=== PATIENT | female | born 1945 | race Caucasian/White ===

== ENCOUNTER 2020-10-04 22:02 | Emergency (ER) | payer MEDICARE ==
[~2020-10-04] VITALS: Ht 165.1 cm; Wt 72.3 kg
[~2020-10-04 22:02] MED LIST: ATOR40TA PO; ESTR1TAB23 PO; TEMA30CA5 PO
[2020-10-04 22:11] VITALS: BP 160/82
== END 2020-10-04 22:20 | disposition home or self-care (01) ==
LOC: ER 22:03
DX: J02.9 Acute pharyngitis, unspecified (principal); Z20.828 Contact with and (suspected) exposure to other viral communicable diseases; Z88.5 Allergy status to narcotic agent; Z79.899 Other long term (current) drug therapy
CPT/HCPCS: 36415; 87635; 99283

== ENCOUNTER 2022-07-09 05:48 | Inpatient (IN) | payer MEDICARE ==
[2022-07-03 12:15] LABS: BASOPHILS # (AUTO) 0.1 X10'3 (0-0.2); BASOPHILS % (AUTO) 0.7 % (0-1); EOSINOPHILS % (AUTO) 0.5 % (0-6); LYMPHOCYTES # (AUTO) 1.3 X10'3 (1.1-4.8); MEAN CORPUSCULAR HEMOGLOBIN 30.3 PG (27.0-31.0); MEAN CORPUSCULAR HGB CONC 33.4 g/dL (33.0-36.5); MEAN CORPUSCULAR VOLUME 90.7 FL (78-98); MEAN PLATELET VOLUME 8.5 FL (7.4-10.4); MONOCYTES # (AUTO) 0.6 X10'3 (0-0.9); MONOCYTES % (AUTO) 6.6 % (2-12); NEUTROPHILS # (AUTO) 6.8 X10'3 (1.8-7.7); NEUTROPHILS % (AUTO) 77.2 % (42-75); PRE OP PLATELET COUNT 313 X10'3 (140-440); RED BLOOD COUNT 4.63 X10'6 (4.20-5.60); RED CELL DISTRIBUTION WIDTH 14.4 % (11.5-14.5)
[2022-07-03 12:29] LABS: ALBUMIN 4.4 G/DL (3.4-5.0); ALBUMIN/GLOBULIN RATIO 1.3 (1.1-1.5); ALKALINE PHOSPHATASE 88 IU/L (46-116); BLOOD UREA NITROGEN 15 MG/DL (7-18); BUN/CREATININE RATIO 16.9 (6.6-38.0); CALCIUM 9.4 MG/DL (8.5-10.1); CHLORIDE 105 MMOL/L (99-107); CREATININE 0.89 MG/DL (0.40-0.90); PRE OP ALT 32 U/L (30-65); PRE OP ANION GAP 9 (8-16); PRE OP AST 20 U/L (10-37); PRE OP BILIRUB, TOTAL 0.7 MG/DL (0.0-1.0); PRE OP GLUCOSE 94 MG/DL (70-104); PRE OP POTASSIUM 4.1 MMOL/L (3.4-5.1); PRE OP SODIUM 142 MMOL/L (135-145); TOTAL CARBON DIOXIDE 28.3 MMOL/L (24-32); TOTAL PROTEIN 7.8 G/DL (6.4-8.2); eGFR 62 ML/MIN
[2022-07-09] VITALS (19 sets, daily range): BP systolic 131–157; BP diastolic 64–93
[~2022-07-09] VITALS: Ht 165.1 cm; Wt 72.9 kg
[~2022-07-09 05:48] MED LIST changes: +DICL50TA14 PO; -ESTR1TAB23 PO; +LIFI1DRO OP; +LOSA50TA3 PO; +LOSA50TA64 PO; +ceFAZolin inj. 2,000 MG in dextrose 5%-water 100 ML IV ONE; +famotidine 20mg tablet PO ONE; +ringers solution, lacted 1,000 ML IV SCH; +tranexamic acid 650mg tablet PO ONE; +vancomycin/NS 1 GM in NS 250 ML IV ONE
[2022-07-09] MEDS ORDERED: ROPIVAcaine 0.5% (5mg/ml) 30ml vial ONE ×2 (08:50→10:13)
[2022-07-09] MEDS ORDERED: fentaNYL/PF 50MCG/1 ML 2ML syringe ONE (09:00)
[2022-07-09] MEDS ORDERED: MIDAZolam 1 MG/ML 5ML VIAL ONE (09:00)
[2022-07-09] MEDS ORDERED: proCHLORperazine 10 MG/2 ml inj IV PRN (09:05)
[2022-07-09] MEDS ORDERED: morphine 2 MG/ML inj. syringe IV PRN (09:05)
[2022-07-09] MEDS ORDERED: meperidine/PF 25mg/ml syringe IV PRN ×3 (09:05)
[2022-07-09] MEDS ORDERED: morphine 4 MG/ML inj SYRINge IV PRN (09:05)
[2022-07-09] MEDS: ROPIVAcaine 0.2%/PF PUMP/bolus 545 ML INTERSCALE SCH (09:05)
[2022-07-09] MEDS ORDERED: ondansetron/PF 4mg/2ml inj IV PRN ×2 (09:05→11:10)
[2022-07-09] MEDS ORDERED: ringers solution, lacted 1,000 ML IV SCH (09:05)
[2022-07-09] MEDS ORDERED: sevoflurane 250ml liquid IH ONE (09:09)
[2022-07-09] MEDS ORDERED: propofol inj 20 ML IV ONE (10:26)
--- NOTE | 2022-07-09 11:05 | NUR ---
PT ARRIVED TO VIA BED ACCOMPANIED BY DR BOSE-ANESTHESIA REPORT GIVEN, PT WAKING UP, VSS, DENIES PAIN, RIGHT SHOULDER IN WRAP WITH POWDER PACK-DRSG CDI, +2 PULSE, PINK WARM FINGERS, ABLE TO MOVE, SCDS ON, PIV 20G TO LEFT HAND, NEURO STATUS-WNL, ON-Q CATH PRESENT.
[2022-07-09] MEDS ORDERED: HYDROmorphone inj. 0.5 MG/0.5 ML DISP.SYRIN IV PRN (11:10)
[2022-07-09] MEDS ORDERED: naloxone 0.4 mg/ml inj IV PRN (11:10)
[2022-07-09] MEDS ORDERED: acetaminophen 325mg tablet PO PRN (11:10)
[2022-07-09] MEDS ORDERED: diphenhydrAMINE 25mg capsule PO PRN ×2 (11:10)
[2022-07-09] MEDS ORDERED: bisacodyl 10mg suppository rectal RC PRN (11:10)
[2022-07-09] MEDS ORDERED: magnesium hydroxide 30ml (MOM) UD suspension PO PRN (11:10)
[2022-07-09] MEDS: ROPIVAcaine 0.2% (10 MG/5 ML) BOLUS INJECTION INTERSCALE PRN (11:32)
--- NOTE | 2022-07-09 12:00 | NUR ---
ON-Q ATTACHED AND RUNNING AT 2ML/HR, PT EDUCATED REGARDING USE.
--- NOTE | 2022-07-09 12:06 | NUR ---
received report from jim brown
--- NOTE | 2022-07-09 12:15 | NUR ---
PT AWAKE, TOLERATING FLUIDS, VSS, DENEIS PAIN, NO CHANGES IN CSM, DRSG-CDI, SCDS ON, NO CHANGES IN ASSESSMENT, REPORT CALLED TO PEDRO LUIS RN-ALL QUESTIONS ANSWERED, TAKEN WITH ALL BELONGINGS TO ROOM 4022A- BED LOW AND LOCKED, CALL LIGHT IN REACH, VS STARTED, PRIMARY RN IN RO RECEIVE PT.
[2022-07-09] MEDS: acetaminophen 325mg tablet PO SCH ×2 (16:05→20:49)
[2022-07-09] MEDS: ceFAZolin/D5W- 1GM premix 50 ML IV SCH (16:06)
--- NOTE | 2022-07-09 18:22 | NUR ---
GAVE REPORT TO February
[2022-07-09] MEDS: LIFITEGRAST EYE EACHEYE SCH (20:00)
[2022-07-09] MEDS ORDERED: vancomycin/NS 1 GM ADD-VANTAGE 250 ML IV SCH (20:00)
[2022-07-09] MEDS: atorvastatin 20mg tablet PO SCH (20:49)
[2022-07-09] MEDS: losartan 50mg tablet PO SCH (20:54)
[2022-07-09] MEDS: sennosides 8.6mg tablet PO SCH (21:00)
[2022-07-10] MEDS: ceFAZolin/D5W- 1GM premix 50 ML IV SCH (00:16)
[2022-07-10] MEDS: oxyCODONE IR 5mg (immed. release) tablet PO PRN ×4 (00:19→18:37)
[2022-07-10] MEDS: temazepam 15mg capsule PO PRN ×2 (00:37→20:26)
[2022-07-10 02:00] VITALS: BP 137/61
[2022-07-10] MEDS: acetaminophen 325mg tablet PO SCH ×4 (03:36→20:26)
[2022-07-10 05:00] VITALS: BP 112/51
[2022-07-10 06:23] LABS: ANION GAP 8 (8-16); CHLORIDE 107 MMOL/L (99-107); POTASSIUM 3.7 MMOL/L (3.5-5.1); SODIUM 142 MMOL/L (135-145); TOTAL CARBON DIOXIDE 26.6 MMOL/L (24-32)
[2022-07-10 06:29] LABS: BASOPHILS % (AUTO) 0.4 % (0-1); EOSINOPHILS # (AUTO) 0.1 X10'3 (0-0.9); EOSINOPHILS % (AUTO) 0.7 % (0-6); HEMATOCRIT 33.7 % (35.0-45.0); HEMOGLOBIN 11.5 g/dl (12.0-16.0); LYMPHOCYTES # (AUTO) 1.5 X10'3 (1.1-4.8); LYMPHOCYTES % (AUTO) 17.5 % (21-51); MEAN CORPUSCULAR HEMOGLOBIN 31.2 PG (27.0-31.0); MEAN CORPUSCULAR HGB CONC 34.2 g/dL (33.0-36.5); MEAN CORPUSCULAR VOLUME 91.3 FL (78-98); MEAN PLATELET VOLUME 8.4 FL (7.4-10.4); MONOCYTES # (AUTO) 0.6 X10'3 (0-0.9); MONOCYTES % (AUTO) 6.7 % (2-12); NEUTROPHILS # (AUTO) 6.5 X10'3 (1.8-7.7); NEUTROPHILS % (AUTO) 74.7 % (42-75); PLATELET COUNT 260 X10'3 (140-440); RED BLOOD COUNT 3.69 X10'6 (4.20-5.60); RED CELL DISTRIBUTION WIDTH 14.3 % (11.5-14.5); WHITE BLOOD COUNT 8.6 X10'3 (4.5-11.0)
--- NOTE | 2022-07-10 06:30 | NUR ---
Patient in room ORTHO 4022. I have received report from NAM Bee and had the opportunity to ask questions and assume patient care.
[2022-07-10] MEDS: LIFITEGRAST EYE EACHEYE SCH ×2 (08:00→20:00)
[2022-07-10] MEDS: aspirin 325mg tablet PO SCH (09:03)
[2022-07-10] MEDS: losartan 50mg tablet PO SCH ×2 (09:03→20:24)
[2022-07-10 10:00] VITALS: BP 114/53
--- NOTE | 2022-07-10 11:49 | NUR ---
Noted pt s/p reverse right TSA. Currently on a regular diet and eating well, documented with 100% PO intake. Written protein education with RD contact information placed in patient's chart. Pt pending discharge per EMR. Will remain available. Addendum: 07/10/22 at [address] Amended: Links added.
[2022-07-10 14:00] VITALS: BP 121/61
[2022-07-10 18:30] VITALS: BP 140/65
--- NOTE | 2022-07-10 18:30 | NUR ---
Assumed care after report from Leanna BROWNING.
--- NOTE | 2022-07-10 18:32 | NUR ---
Problems reprioritized. Patient report given, questions answered & plan of care reviewed with auto body painter Beth.
[2022-07-10] MEDS: atorvastatin 20mg tablet PO SCH (20:17)
[2022-07-10] MEDS: sennosides 8.6mg tablet PO SCH (20:18)
[2022-07-10 22:18] VITALS: BP 119/74
[2022-07-11] MEDS: acetaminophen 325mg tablet PO SCH ×2 (02:59→08:00)
[2022-07-11 05:00] VITALS: BP 141/74
[2022-07-11 06:25] LABS: BASOPHILS % (AUTO) 0.3 % (0-1); EOSINOPHILS # (AUTO) 0.1 X10'3 (0-0.9); EOSINOPHILS % (AUTO) 0.7 % (0-6); HEMATOCRIT 32.8 % (35.0-45.0); HEMOGLOBIN 11.5 g/dl (12.0-16.0); LYMPHOCYTES # (AUTO) 1.3 X10'3 (1.1-4.8); MEAN CORPUSCULAR HEMOGLOBIN 31.7 PG (27.0-31.0); MEAN CORPUSCULAR HGB CONC 35.1 g/dL (33.0-36.5); MEAN CORPUSCULAR VOLUME 90.2 FL (78-98); MEAN PLATELET VOLUME 8.4 FL (7.4-10.4); MONOCYTES # (AUTO) 0.7 X10'3 (0-0.9); MONOCYTES % (AUTO) 7.1 % (2-12); NEUTROPHILS # (AUTO) 7.7 X10'3 (1.8-7.7); NEUTROPHILS % (AUTO) 78.9 % (42-75); PLATELET COUNT 242 X10'3 (140-440); RED BLOOD COUNT 3.64 X10'6 (4.20-5.60); RED CELL DISTRIBUTION WIDTH 13.9 % (11.5-14.5); WHITE BLOOD COUNT 9.8 X10'3 (4.5-11.0)
--- NOTE | 2022-07-11 06:30 | NUR ---
Report to Leanna BROWNING
--- NOTE | 2022-07-11 06:34 | NUR ---
Patient in room ORTHO 4022. I have received report from director of convention services Beth and had the opportunity to ask questions and assume patient care.
[2022-07-11] MEDS: losartan 50mg tablet PO SCH (07:59)
[2022-07-11] MEDS: aspirin 325mg tablet PO SCH (07:59)
[2022-07-11] MEDS: LIFITEGRAST EYE EACHEYE SCH (08:00)
[2022-07-11] MEDS: ROPIVAcaine 0.2%/PF PUMP/bolus 545 ML INTERSCALE SCH (09:05)
[2022-07-11 10:00] VITALS: BP 120/83
[2022-07-11] MEDS ORDERED: acetaminophen 325mg tablet PO PRN (11:10)
[2022-07-11] MEDS: ROPIVAcaine 0.2% (10 MG/5 ML) BOLUS INJECTION INTERSCALE PRN (11:39)
--- NOTE | 2022-07-11 15:13 | NUR ---
Pt discharged to [facility] at 1415, with all belongings, via medical transport. Report called to Shiraz at [facility]. IV DC'd, cannula intact.
--- NOTE | 2022-07-17 11:56 | NUR ---
Case Management DC follow up: Patient discharged to [facility].
== END 2022-07-11 14:15 | DRG 483 ==
LOC: PAS IN 05:48 → ORTHO 4S 12:15
PROVIDERS: ADMIT Orthopaedic Surgery; ATTEND Orthopaedic Surgery
PROC: 0LS30ZZ Reposition Right Upper Arm Tendon, Open Approach (ICD-10-PCS; 2022-07-09)
PROC: 3E0T3BZ Introduction of Anesthetic Agent into Peripheral Nerves and Plexi, Percutaneous Approach (ICD-10-PCS; 2022-07-09)
PROC: 3E0T33Z Introduction of Anti-inflammatory into Peripheral Nerves and Plexi, Percutaneous Approach (ICD-10-PCS; 2022-07-09)
PROC: 0RRJ00Z Replacement of Right Shoulder Joint with Reverse Ball and Socket Synthetic Substitute, Open Approach (ICD-10-PCS; principal; 2022-07-09 09:09)
DX: M19.011 Primary osteoarthritis, right shoulder (principal); Z20.822 Contact with and (suspected) exposure to COVID-19; I10 Essential (primary) hypertension; M65.811 Other synovitis and tenosynovitis, right shoulder; M75.101 Unspecified rotator cuff tear or rupture of right shoulder, not specified as traumatic; Z88.5 Allergy status to narcotic agent; Z90.710 Acquired absence of both cervix and uterus
CPT/HCPCS: 36415; 80051; 80053; 82948; 85025; 87081; 87635; 87811; 93005; 97110; 97161; 97530; A4565; A4618; A7000; C1776; G0378; J0690; J2250; J2405; J2704; J2795; J3010; J3370; J3490; J7060; J7120

== ENCOUNTER 2023-03-06 10:13 | Emergency (ER) | payer MEDICARE ==
[~2023-03-06] VITALS: Ht 165.1 cm; Wt 76.8 kg
[~2023-03-06 10:13] MED LIST changes: -ceFAZolin inj. 2,000 MG in dextrose 5%-water 100 ML IV ONE; -famotidine 20mg tablet PO ONE; -ringers solution, lacted 1,000 ML IV SCH; -tranexamic acid 650mg tablet PO ONE; -vancomycin/NS 1 GM in NS 250 ML IV ONE
[2023-03-06 10:32] VITALS: BP 171/84
== END 2023-03-06 13:06 | disposition home or self-care (01) ==
LOC: ER 10:14
DX: S00.81XA Abrasion of other part of head, initial encounter (principal); S80.211A Abrasion, right knee, initial encounter; Z88.5 Allergy status to narcotic agent; Z79.899 Other long term (current) drug therapy; Z79.1 Long term (current) use of non-steroidal anti-inflammatories (NSAID); Z79.2 Long term (current) use of antibiotics; W18.39XA Other fall on same level, initial encounter; Y93.89 Activity, other specified; Y92.89 Other specified places as the place of occurrence of the external cause; Y99.8 Other external cause status
CPT/HCPCS: 70450; 70486; 72125; 99284

== ENCOUNTER 2023-05-21 19:34 | Emergency (ER) | payer MEDICARE ==
[~2023-05-21] VITALS: Ht 165.1 cm; Wt 73.6 kg
[~2023-05-21 19:34] MED LIST changes: +LOSA-416 PO; -LOSA50TA3 PO
[2023-05-21 20:23] LABS: BASOPHILS % (AUTO) 0.4 % (0-1); EOSINOPHILS # (AUTO) 0.1 X10'3 (0-0.9); EOSINOPHILS % (AUTO) 1.3 % (0-6); HEMATOCRIT 39.3 % (35.0-45.0); HEMOGLOBIN 13.1 g/dl (12.0-16.0); LYMPHOCYTES # (AUTO) 2.1 X10'3 (1.1-4.8); LYMPHOCYTES % (AUTO) 20.9 % (21-51); MEAN CORPUSCULAR HEMOGLOBIN 30.7 PG (27.0-31.0); MEAN CORPUSCULAR HGB CONC 33.4 g/dL (33.0-36.5); MEAN CORPUSCULAR VOLUME 92.1 FL (78-98); MEAN PLATELET VOLUME 8.5 FL (7.4-10.4); MONOCYTES # (AUTO) 0.7 X10'3 (0-0.9); MONOCYTES % (AUTO) 7.3 % (2-12); NEUTROPHILS # (AUTO) 6.9 X10'3 (1.8-7.7); NEUTROPHILS % (AUTO) 70.1 % (42-75); PLATELET COUNT 303 X10'3 (140-440); RED BLOOD COUNT 4.27 X10'6 (4.20-5.60); RED CELL DISTRIBUTION WIDTH 14.1 % (11.5-14.5); WHITE BLOOD COUNT 9.9 X10'3 (4.5-11.0)
[2023-05-21 20:34] LABS: ALANINE AMINOTRANSFERASE 27 U/L (12-78); ALBUMIN 3.6 G/DL (3.4-5.0); ALBUMIN/GLOBULIN RATIO 1.1 (1.1-1.5); ALKALINE PHOSPHATASE 84 IU/L (46-116); ANION GAP 10 (8-16); ASPARTATE AMINO TRANSFERASE 14 U/L (10-37); BILIRUBIN,TOTAL 0.4 MG/DL (0.1-1.0); BLOOD UREA NITROGEN 28 MG/DL (7-18); BUN/CREATININE RATIO 19.9 (10.0-20.0); CALCIUM 9.3 MG/DL (8.5-10.1); CHLORIDE 103 MMOL/L (99-107); CREATININE 1.41 MG/DL (0.40-0.90); GLUCOSE 121 MG/DL (70-104); LIPASE 70 U/L (73-393); POTASSIUM 4.6 MMOL/L (3.5-5.1); SODIUM 138 MMOL/L (135-145); TOTAL CARBON DIOXIDE 25.5 MMOL/L (24-32); TOTAL PROTEIN 6.8 G/DL (6.4-8.2); eGFR 36 ML/MIN
[2023-05-21] MEDS ORDERED: acetaminophen 1,000mg/100ml IV 100 ML IV STA (22:15)
[2023-05-21] MEDS ORDERED: iohexol 300mg/ml 100ml inj. ONE (22:29)
[2023-05-21 22:40] LABS: CLARITY,URINE SLIGHTLY CLOUDY (Clear); COLOR,URINE YELLOW (Yellow); GLUCOSE, URINE NEGATIVE (Neg); KETONES,URINE NEGATIVE (Neg); LEUKOCYTE ESTERASE ,URINE NEGATIVE (Neg); NITRITES, URINE NEGATIVE (Neg); OCCULT BLOOD,URINE NEGATIVE (Neg); PH,URINE 5.5 (4.8-8.0); PROTEIN,URINE NEGATIVE (Neg); UROBILINOGEN,URINE 0.2 E.U/dL (0.2-1.0)
[2023-05-21 22:46] LABS: UA COLLECTION TYPE CLN CATCH MIDSTREAM
[2023-05-21 22:48] LABS: MUCUS STRANDS MODERATE /LPF (Neg); SQUAMOUS EPITHELIAL CELL,UR MODERATE /LPF (FEW)
[2023-05-21 22:49] LABS: BACTERIA,URINE FEW /HPF (Neg); RBC,URINE 0-2 /HPF (0-2); WBC,URINE 0-4 /HPF (0-4)
[2023-05-22 00:25] VITALS: BP 164/65
== END 2023-05-22 00:27 | disposition home or self-care (01) ==
LOC: ER 19:35
DX: R10.31 Right lower quadrant pain (principal); M54.59 Other low back pain; R19.7 Diarrhea, unspecified
CPT/HCPCS: 36415; 74177; 80053; 81001; 83690; 85025; 96374; 99285; J0131; J3490; Q9967